=== PATIENT | male | born 1970 | race Caucasian/White ===

== ENCOUNTER 2020-08-20 17:49 | Emergency (ER) | payer OTHER, MEDICAID ==
[~2020-08-20] VITALS: Ht 162.6 cm; Wt 74.0 kg
[2020-08-20 17:51] VITALS: BP 135/85
[2020-08-20] MEDS ORDERED: CEPH250T PO (18:18)
== END 2020-08-20 18:25 | disposition home or self-care (01) ==
LOC: ER 17:50
DX: S01.01XD Laceration without foreign body of scalp, subsequent encounter (principal); Z48.02 Encounter for removal of sutures; Z79.2 Long term (current) use of antibiotics; X58.XXXD Exposure to other specified factors, subsequent encounter
CPT/HCPCS: 99283